=== PATIENT | male | born 1950 | race Caucasian/White ===

== ENCOUNTER → 2024-06-19 | Outpatient (CLI) | payer MEDICARE, MEDICAID, SELFPAY ==
[2024-06-19 10:25] LABS: Alanine Aminotransferase 10 U/L (10-49); Albumin, Serum 4.1 gm/dL (3.4-4.8); Albumin/Globulin Ratio 1.6 (1.2-2.2); Alkaline Phosphatase 72 U/L (46-116); Anion Gap 6 (7-16); Aspartate Amino Transferase 13 U/L (0-34); BUN/Creatinine Ratio 13 Ratio (12-20); Bilirubin,Total 0.8 mg/dL (0.3-1.2); Blood Urea Nitrogen 15 mg/dL (9-23); Calcium 9.8 mg/dL (8.3-10.6); Calcium (Corrected) 9.8 mg/dL (8.5-10.1); Carbon Dioxide 28.1 mMol/L (20.0-31.0); Chloride 108 mMol/L (98-107); Creatinine (Component) 1.2 mg/dL (0.6-1.3); Globulin 2.5 gm/dL (2.3-3.5); Glucose 97 mg/dL (74-106); Osmolality,Calculated 283 (275-295); Potassium 3.6 mMol/L (3.4-5.1); Sodium 142 mMol/L (136-145); Total Protein 6.6 gm/dL (5.7-8.2); eGFR > 60 See Note
== END | disposition home or self-care (01) ==
LOC: SCTO 09:18
PROVIDERS: PCP Family Medicine; Referring Provider Radiology Therapeutic Radiology; Visit Provider Radiology Therapeutic Radiology
DX: C61 Malignant neoplasm of prostate (principal)
CPT/HCPCS: 36415; 80053

== ENCOUNTER 2024-06-28 09:14 | Outpatient (RCR) | payer MEDICARE, MEDICAID, SELFPAY ==
--- NOTE | 2024-06-28 10:47 | CTCTXPLN_ITS ---
[facility] [place] [address] [place], [place] [address] Physician Clinical Treatment Planning Note Date of Service: 06/28/2024 Name: SOFY HINOJOSA : 1950 The patient has agreed to proceed with Radiation therapy. Tests and supporting medical records were interpreted to assist in defining the tumor location and extent of disease. Further imaging will be necessary to contour and delineate the volume to which the XRT will be provided. A. Treatment Intent: Palliative B. Modality: 6 MV C. Requested Technique: VMAT D. Treatment Site: C-spine E. Critical structures to be contoured on plan: F. In order to accomplish this plan, I am ordering/Prescribing the followin. Simulations (s) will be performed to accomplish a reproducible treatment position, to determine op timal treatment portals/beam arrangements, to design beam modifying devices and verify treatment port als on patient prior to the commencement of Radiation Therapy. C-spine 2. Devices; for immobilization and beam shapin. CT Guidance for placement of XRT ordonez Scan area: 4. Portal images Frequency: 5. Invivo transit dose measurement once per week on all VMAT patients. 6. Special Physics Consult Requested for: 7. Other requests: G. Dose Objectives: Palliative Electronically signed by: Zenon Pollack M.D. 06/28/2024 10:44 AM
--- NOTE | 2024-06-28 10:49 | CTCTXPLNST_ITS ---
Radiation Oncology Treatment Planning Sheet Name: SOFY HINOJOSA MR#: [id number] : 1950 Dx: C61 Malignant neoplasm of prostate Date of Service: 06/28/2024 Account #: ?? Pt Treatment Intent: curative palliative other: Stage: Procedure CPT # Ordered Spec. Procedure 15604 Cordova Complex (set-up) 08963 C spine (base of skull-T1) 1 Cordova Simple 08812 IMRT Plan 38252 1 MLC Devices VMAT 75935 3 Cordova 3 D 05597 TRTMT dev Complex 41421 aquaplast 1 TRTMT dev simple 99742 Basic Bg 17733 6 Special Dosimetry 47909 Spec Physics 22449 Port Films 44155 SRS Cranial/1FX 09793 SBR 5 FX or Less /ex: 5 = 5 fx 58074 IMRT Simple 49209 3000 10 IMRT Complex 86629 IGRT 57402 8 Rad del com 6-10 64378 Rad del com 06-26 52498 Cont Med Physics 12567 2 Treatment Planning 49885 1 Rad del com 20 mev 93398 Rad del inter 6 57050 Rad del inter 06-26 16195 Rad del simple 6 31623 Rad del simple 06-26 45505 Special Port Plan 61950 TRTMT dev inter 68366 Isodose Complex 52375 Isodose simple 96094 Resp Motion Mgmt Simulation 01200 Placement of Fiducial Markers 28694 Electronically Signed By: Zenon Pollack MD, DABR 06/28/2024 10:47 AM
== END 2024-07-07 23:59 | disposition home or self-care (01) ==
LOC: SCTC 09:14
PROVIDERS: PCP Family Medicine; Referring Provider Radiology Therapeutic Radiology; Visit Provider Radiology Therapeutic Radiology
DX: C61 Malignant neoplasm of prostate (principal)
CPT/HCPCS: 78306; 99213; A9503; G0463

== ENCOUNTER → 2024-06-28 | Outpatient (CLI) | payer MEDICARE, MEDICAID, SELFPAY ==
--- NOTE | 2024-06-28 13:00 | XR_ITS ---
Examination: Bone scan whole body, radioisotope Date and time of exam: June 28, 2024 1301 hours Comparison 05/06/2023 INDICATIONS: Diagnosis malignant neoplasm prostate status post prostatectomy September 2023 with elevated PSA Technique: Study has been performed with intravenous administration of 85.4 mci 99M technetium MDP. Anterior, posterior whole body images are obtained. Images have been obtained including the lower extremities. Findings: Increased isotope accumulation right shoulder Increased isotope accumulation over the first digits Mildly increased isotope accumulation mid dorsal spine IMPRESSION: Positive bone scan but nonspecific, recommend repeat plain films right shoulder as well as plain films thoracic spine follow-up
== END | disposition home or self-care (01) ==
PROVIDERS: PCP Family Medicine; Referring Provider Radiology Therapeutic Radiology; Visit Provider Radiology Therapeutic Radiology
DX: R93.7 Abnormal findings on diagnostic imaging of other parts of musculoskeletal system (principal); C61 Malignant neoplasm of prostate
CPT/HCPCS: 78306; A9503

== ENCOUNTER 2024-07-31 10:51 | Outpatient (RCR) | payer MEDICARE, MEDICAID, SELFPAY ==
--- NOTE | 2024-07-12 15:16 | CTCSNOTE_ITS ---
[facility] [address] [place], [place] [address] CT Simulation Note Date: 07/09/2024 MR# [id number] Name: SOFY HINOJOSA : 1950 (A) DIAGNOSIS: C61 Malignant neoplasm of prostate (B) Patient was placed in supine position and used aqupalst for immobilization purposes. (C) CT slices included c spine (D) VMAT Will be needed for maximum sparing of adjacent normal critical structures. (E) Patient tolerated the simulation well and left the room in good condition. Electronically signed by: Zenon Pollack MD, DUDLEY 07/12/2024 3:13 PM
== END 2024-08-07 23:59 | disposition home or self-care (01) ==
LOC: SCTC 10:51
PROVIDERS: PCP Family Medicine; Referring Provider Radiology Therapeutic Radiology; Visit Provider Nurse Practitioner Family
DX: Z51.0 Encounter for antineoplastic radiation therapy (principal); Z51.11 Encounter for antineoplastic chemotherapy; C61 Malignant neoplasm of prostate; C79.51 Secondary malignant neoplasm of bone; Z90.79 Acquired absence of other genital organ(s)
CPT/HCPCS: 36415; 77014; 77290; 77300; 77301; 77334; 77336; 77338; 77385; 80053; 84153; 85025; 96402; 99212; J9217; G0463

== ENCOUNTER 2024-08-04 10:15 | Emergency (ER) | payer MEDICARE, MEDICAID, SELFPAY ==
[2024-08-04 10:16] VITALS: BMI 35.5
[2024-08-04 11:17] VITALS: BP 149/79; PULSE 96; RESP 18; TEMP 37.2; O2SAT 95; BMI 36.3
--- NOTE | 2024-08-04 11:55 | PD.EDRME ---
Rapid Medical Screening Exam RME Arrival date/time: 08/04/24 10:15 74-year-old male past medical history of cancer to neck presents emergency department complaining of inability to swallow or eat for the last 4 days after receiving radiation therapy. Chief Complaint: Dental/Oral/Throat Time Seen by Provider: 08/04/24 11:22 Vital signs: Vital Signs Temperature 98.9 F 08/04/24 11:17 Pulse Rate 96 08/04/24 11:17 Respiratory Rate 18 08/04/24 11:17 Blood Pressure 149/79 H 08/04/24 11:17 Pulse Oximetry (%) 95 08/04/24 11:17 Oxygen Delivery Method Room Air 08/04/24 11:17 Vital signs reviewed by provider: Yes
[2024-08-04 13:05] LABS: Basophils % (Auto) 0 % (0-2.5); Eosinophils # (Auto) 0.1 Thou/mm3 (0.0-0.5); Eosinophils % (Auto) 2 % (0-10); Hematocrit 40.6 % (41.0-53.0); Hemoglobin 14.1 g/dL (13.5-16.0); Immature Granulocytes % (Auto) 0 % (0-0); Immature Granulocytes Auto 0.02 Thou/mm3 (0.00-0.00); Lymphocytes # (Auto) 0.7 Thou/mm3 (1.0-4.8); Lymphocytes % (Auto) 11 % (10-50); Mean Corpuscular HGB Conc 34.7 g/dl (31.0-37.0); Mean Corpuscular Hemoglobin 32.1 pg (25.0-35.0); Mean Corpuscular Volume 93 fL (80-100); Monocytes # (Auto) 0.6 Thou/mm3 (0.0-0.8); Monocytes % (Auto) 9 % (0-12); Neutrophils # (Auto) 4.9 Thou/mm3 (1.8-7.7); Neutrophils % (Auto) 78 % (37-80); Nucleated Red Blood Cell % 0 /100 WBC (0); Platelet Count 292 Thou/mm3 (140-440); RDW Standard Deviation 43.8 fL (35.1-43.9); Red Blood Count 4.39 Miln/mm3 (4.50-5.90); White Blood Count 6.3 Thou/mm3 (3.8-10.6)
[2024-08-04 13:34] LABS: Alanine Aminotransferase 11 U/L (10-49); Albumin, Serum 4.7 gm/dL (3.4-4.8); Albumin/Globulin Ratio 1.7 (1.2-2.2); Alkaline Phosphatase 60 U/L (46-116); Anion Gap 9 (7-16); Aspartate Amino Transferase 30 U/L (0-34); BUN/Creatinine Ratio 17 Ratio (12-20); Bilirubin,Total 0.8 mg/dL (0.3-1.2); Blood Urea Nitrogen 19 mg/dL (9-23); Calcium 10.1 mg/dL (8.3-10.6); Calcium (Corrected) 10.1 mg/dL (8.5-10.1); Carbon Dioxide 26.1 mMol/L (20.0-31.0); Chloride 105 mMol/L (98-107); Creatinine (Component) 1.1 mg/dL (0.6-1.3); Estimated Creatinine Clearance 61.8 mL/min (>60); Globulin 2.8 gm/dL (2.3-3.5); Glucose 90 mg/dL (74-106); Osmolality,Calculated 281 (275-295); Potassium 4.2 mMol/L (3.4-5.1); Sodium 140 mMol/L (136-145); Total Protein 7.5 gm/dL (5.7-8.2); eGFR > 60 See Note
[2024-08-04 14:14] VITALS: BP 123/81; PULSE 93; RESP 18; TEMP 36.8; O2SAT 98
[2024-08-04 14:37] LABS: Collection Type, Urine Clean Catch
[2024-08-04 14:52] LABS: Amorphous Crystals,Urine Present (Absent); Bilirubin,Urine Negative (Negative); Blood,Urine 1+ (Negative); Color,Urine Yellow (Lt Yel-Yel); Culture Indicated,Urine Not Indicated; Glucose, Urine Negative (Negative); Ketones,Urine 4+ (Negative); Leukocyte Esterase,Urine Negative (Negative); Nitrite,Urine Negative (Negative); Protein,Urine 1+ (Neg - Trace); RBC,Urine 6 /hpf (0-3); Specific Gravity,Urine 1.038 (1.001-1.035); Squamous Epithelial Cell,Urine < 1 /hpf (0-5); Urobilinogen,Urine Negative mg/dL (0.0-1.0); WBC,Urine 1 /hpf (0-5)
[2024-08-04 14:55] LABS: Clarity,Urine Hazy (Clear/Hazy)
[2024-08-04] MEDS: LIDOCAINE VISCOUS 2% 15 ML UDC PO (17:03)
[2024-08-04] MEDS: MG HYD/AL HYD/SIME (Maalox Reg) SUSP 30 ML UDC 10 ML PO (17:04)
[2024-08-04] MEDS: DiphenhydrAMINE ELIX 25 MG/10 ML UDC PO (17:06)
--- NOTE | 2024-08-04 17:39 | EDNOTE_ITS ---
ED General RME/HPI General Chief complaint: Dental/Oral/Throat Stated complaint: CAN'T EAT S/P RADIATION ON NECK 4 DAYS AGO Time Seen by Provider: 08/04/24 11:22 Arrival date/time: 08/04/24 10:15 RME / HPI RME / HPI narrative: 08/04/24 10:15 74-year-old male past medical history of cancer to neck presents emergency department complaining of inability to swallow or eat for the last 4 days after receiving radiation therapy. CARLOS MANUEL HPI: 74-year-old male with a history of metastatic cancer to his cervical spine (prostate primary) who presents with 2 weeks of progressive dysphagia where he has difficulty even swallowing water now for the past 4 days. He completed 10 days of radiation 10 rounds up until 4 days ago. He initially noted difficulty swallowing foods where it rapidly progressed to anything solid anything liquid by the end of his radiation. He no longer is scheduled for radiation at this point but comes to the emergency department has he has difficulty with swallowing. He describes as both a difficulty initiating the swallow mixed with a sense of it getting stuck. He describes a getting stuck very high above the level of his [place]aw[place] apple. Related Data Home Medications ?Medication ?Instructions ?Recorded ?Confirmed tamsulosin 0.4 mg capsule (Flomax) 0.4 mg PO QDAY 03/24/23 10/13/23 Allergies Allergy/AdvReac Type Severity Reaction Status Date / Time No Known Allergies Allergy Verified 08/04/24 10:17 ED Exam Narrative Physical exam: GENERAL APPEARANCE: AxOx4, generally well-appearing, no acute distress. HEENT: NC, AT. MMM. EOMI, clear conjunctiva, oropharynx clear, no masses, no erythema, no mucosal membrane breakdown NECK: Supple without lymphadenopathy. No masses, no asymmetry, no stiffness or restricted ROM. HEART: Normal rate and regular rhythm, normal S1/S1, no m/r/g LUNGS: CTAB, moving air well. No crackles or wheezes are heard. NEUROLOGICAL: Grossly nonfocal. Alert and oriented, moving all 4 extremities. CN not formally tested but appear grossly intact. Observed to ambulate with normal gait. Course Course Course Narrative: After Magic mouthwash/GI cocktail patient was able to tolerate p.o. fluids well with minimal discomfort Quality Measures none Orders Category Date Time Status CBC Stat Lab 08/04/24 12:41 Completed CMP [Comprehensive Metabolic Panel] Stat Lab 08/04/24 12:41 Completed Urinalysis, C/S if Indicated Stat Lab 08/04/24 11:45 Completed DiphenhydrAMINE [Benadryl] Med 08/04/24 16:46 Discontinued 25 mg PO X1 ONE Lidocaine 2% Viscous [Xylocaine 2% Viscous] Med 08/04/24 16:46 Discontinued 15 ml PO X1 ONE mg Hyd/Al Hyd/Tomy Susp [Maalox Susp] Med 08/04/24 16:46 Discontinued 10 ml PO X1 ONE Vital Signs Vital signs: Vital Signs Temperature 98.9 F 08/04/24 11:17 Pulse Rate 96 08/04/24 11:17 Respiratory Rate 18 08/04/24 11:17 Blood Pressure 149/79 H 08/04/24 11:17 Pulse Oximetry (%) 95 08/04/24 11:17 Oxygen Delivery Method Room Air 08/04/24 11:17 [facility] Patient data External records reviewed:: [facility] previous records Clinical information provided by:: patient Social determinants that could affect healthcare access:: none Patient has the following chronic illnesses:: Metastatic prostate cancer How is presenting disease/condition affected by chronic disease/condition?: e xacerbated by Evaluation data The following diagnostics were reviewed and interpreted by me:: lab results and other (specify) Lab and/or radiology exams considered but not ordered:: As per narrative Interpretation Summary: As per narrative Medications Medications considered but not ordered:: None Medication administrations:: Medication Administration History Discontinued Medications Al Hydrox/Mg Hydrox/Simethicone (Mg Hyd/Al Hyd/Tomy (Maalox Reg) Susp 30 Ml Udc) 10 ml PO X1 ONE Stop: 08/04/24 16:47 Last Admin: 08/04/24 17:04 Dose: 10 ml Documented By: EDUARDO Diphenhydramine HCl (Diphenhydramine Elix 25 Mg/10 Ml Udc) 25 mg PO X1 ONE Stop: 08/04/24 16:47 Last Admin: 08/04/24 17:06 Dose: 25 mg Documented By: EDUARDO Lidocaine HCl (Lidocaine Viscous 2% 15 Ml Udc) 15 ml PO X1 ONE Stop: 08/04/24 16:47 Last Admin: 08/04/24 17:03 Dose: 15 ml Documented By: EDUARDO Above Consultations Consultation(s) initiated? (list below): No Diagnosis Differential Diagnosis ED Complaint MDM: Esophagitis, metastatic mass effect, dysphagia, upper respiratory infection Most likely diagnosis given after review of the tests above:: See below Admission Indicated Admission indicated?: not indicated Explain why admission is indicated or not indicated:: As per narrative Admission Request Was there a request for admission?: No Disposition Plan Disposition Plan: Discharge Discharge Attestation Discharge Attestation: The patient and all family members were given an opportunity to ask questions and understood the discharge instructions. Discharge instructions specifically effects, indications for sooner follow up or return to the emergency department, and the expected course of current diagnosis. Patient condition: Stable Medical Decision Making MDM Narrative MDM Narrative: Mr. Gomez is a very pleasant gentleman who just completed a relatively aggressive round of directed radiation therapy to his neck who now presents with symptoms consistent with dysphagia. His pattern of tolerating solids to liquids does not appear to be due to a gradual mass effect. It seems to be random and likely secondary to localized irritation/inflammation. Therefore after discussion with the patient we decided to try some topical treatments and to assess for his swallowing. If this would work we would consider CT scan of the neck to look for any particular mass effect. After a concoction of Magic mouthwash/GI cocktail components, patient noted significant improvement was actually able to tolerate water and liquids very well. He does not want the CT scan in order likely needs 1 at this point. Laboratory testing was sent via the RME process which shows no acute findings or close does not really have a particular or directed association with the symptoms or dysphagia. As patient is otherwise well-appearing, stable vital signs, is not tolerating fluids. He is appropriate for outpatient follow-up with his radiation oncologist. Differential Diagnosis Differential Diagnosis: Esophagitis, metastatic mass effect, dysphagia, upper respiratory infection Lab Data 08/04/24 12:41 08/04/24 12:41 Labs: Lab Results 08/04/24 08/04/24 Range/Units 11:45 12:41 WBC 6.3 (3.8-10.6) Thou/mm3 RBC 4.39 L (4.50-5.90) Miln/mm3 Hgb 14.1 (13.5-16.0) g/dL Hct 40.6 L (41.0-53.0) % MCV 93 (80-100) fL MCH 32.1 (25.0-35.0) pg MCHC 34.7 (31.0-37.0) g/dl RDW Std Deviation 43.8 (35.1-43.9) fL Plt Count 292 D (140-440) Thou/mm3 Neut % (Auto) 78 (37-80) % Lymph % (Auto) 11 (10-50) % [place] % (Auto) 9 (0-12) % Eos % (Auto) 2 (0-10) % Baso % (Auto) 0 (0-2.5) % Neut # (Auto) 4.9 (1.8-7.7) Thou/mm3 Lymph # (Auto) 0.7 L (1.0-4.8) Thou/mm3 [place] # (Auto) 0.6 (0.0-0.8) Thou/mm3 Eos # (Auto) 0.1 (0.0-0.5) Thou/mm3 Baso # (Auto) 0.0 (0.0-0.2) Thou/mm3 Immature Gran # (Auto) 0.02 H (0.00-0.00) Thou/mm3 Absolute Nucleated RBC 0.00 (0.00-0.00) Thou/mm3 Immature Gran % 0 (0-0) % Nucleated RBC % 0 (0) /100 WBC Sodium 140 (136-145) mMol/L Potassium 4.2 (3.4-5.1) mMol/L Chloride 105 (98-107) mMol/L Carbon Dioxide 26.1 (20.0-31.0) mMol/L Anion Gap 9 (7-16) BUN 19 (9-23) mg/dL Creatinine 1.1 (0.6-1.3) mg/dL Estim Creat Clear Calc 61.8 (>60) mL/min eGFR > 60 (60 - ) See Note BUN/Creatinine Ratio 17 (12-20) Ratio Glucose 90 (74-106) mg/dL Calculated Osmolality 281 (275-295) Calcium 10.1 (8.3-10.6) mg/dL Corrected Calcium 10.1 (8.5-10.1) mg/dL Total Bilirubin 0.8 (0.3-1.2) mg/dL AST 30 (0-34) U/L ALT 11 (10-49) U/L Alkaline Phosphatase 60 (46-116) U/L Total Protein 7.5 (5.7-8.2) gm/dL Albumin 4.7 (3.4-4.8) gm/dL Globulin 2.8 (2.3-3.5) gm/dL Albumin/Globulin Ratio 1.7 (1.2-2.2) Ur Collection Type Clean Catch Urine Color Yellow (Lt Yel-Yel) Urine Clarity Hazy (Clear/Hazy) Urine pH 6.0 (5.0-7.0) Ur Specific [place] 1.038 H (1.001-1.035) Urine Protein 1+ A (Neg - Trace) Urine Glucose (UA) Negative (Negative) Urine Ketones 4+ A (Negative) Urine Blood 1+ A (Negative) Urine Nitrite Negative (Negative) Urine Bilirubin Negative (Negative) Urine Urobilinogen (Auto) Negative (0.0-1.0) mg/dL Ur Leukocyte Esterase Negative (Negative) Urine RBC 6 H (0-3) /hpf Urine WBC 1 (0-5) /hpf Ur Squamous Epith Cells < 1 (0-5) /hpf Amorphous Crystals Present A (Absent) Urine Bacteria None (None) Ur Culture Indicated? Not Indicated Discharge Plan Plan Patient Disposition: HOME (Self Care) Prescriptions/Referrals Prescriptions/Med Rec: No Action tamsulosin [Flomax] 0.4 mg capsule 0.4 mg PO QDAY Referrals: Shilo Greene MD [Primary Care Provider] - In 1 week Problem List Clinical Impression: Dysphagia Patient/Caregiver Discharge Instructions Education Materials: ED Soft Diet, ED Dysphagia (Adult) Additional Instructions: Please take [id number] Maalox, and liquid Benadryl (children's Benadryl), in combination to calm the irritation to your throat. The mixture would be 2 tablespoons of Maalox with 2 tablespoons of Benadryl swallowed into mouthfuls. Each mouthful allow it sometimes to swish around your mouth and followed by slowly swallowing. Repeat this for second round. You can do this up to 3 times a day to calm the inflammation and irritation to the back your throat. Follow- up with your radiation oncologist, Dr. Pollack, in 2 to 3 days for recheck. You can return to the emergency department sooner symptoms worsen or if he notes any new or concerning issues. Print Language: [place] Stand Alone Forms: Beata Award Info., Patient Portal Info Letter
== END 2024-08-04 17:45 | disposition home or self-care (01) ==
PROVIDERS: Emergency Provider Emergency Medicine; PCP Family Medicine; Referring Provider Emergency Medicine
DX: R13.10 Dysphagia, unspecified (principal); C61 Malignant neoplasm of prostate; C79.51 Secondary malignant neoplasm of bone; Z92.3 Personal history of irradiation
CPT/HCPCS: 36415; 80053; 81001; 85025; 99283; J3490; A9270

== ENCOUNTER 2024-08-14 14:29 | Outpatient (RCR) | payer MEDICARE, MEDICAID, SELFPAY ==
--- NOTE | 2024-08-14 15:10 | CTCTSUMM_ITS ---
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 (B) Aim of Treatment: Palliative (C) Concomitant Chemotherapy: No (D) Radiation Dates: Prior radiation therapy to the prostate region JanuaryFebruary 2024 (E) Additional radiation therapy for C-spine mets as follows between 07/16/2024 through 07/27/2024 Treatment Prescription c spine VMAT 6 MV PHOT 3,000 cGy 10 300 cGy Approved (F) All ordonez were treated using customized MLC Blocks (G) Finding at Discharge: Patient had esophagitis symptoms and went to ER several days ago but now re solved. (H) Discharge Instructions and F/U Appt was given: The patient was also advised to continue follow-up with Dr. Chamberlain and primary care physician: Electronically signed by: Zenon Pollack MD, JULISAR 08/14/2024 3:08 PM
== END 2024-09-07 23:59 | disposition home or self-care (01) ==
LOC: SCTC 14:29
PROVIDERS: PCP Family Medicine; Referring Provider Family Medicine; Visit Provider Radiology Therapeutic Radiology
DX: C61 Malignant neoplasm of prostate (principal); C79.51 Secondary malignant neoplasm of bone; Z92.3 Personal history of irradiation
CPT/HCPCS: 99212; G0463

== ENCOUNTER → 2024-11-14 | Outpatient (CLI) | payer MEDICARE, MEDICAID, SELFPAY ==
[2024-11-14 09:31] LABS: Basophils % (Auto) 1 % (0-2.5); Eosinophils # (Auto) 0.3 Thou/mm3 (0.0-0.5); Eosinophils % (Auto) 6 % (0-10); Hematocrit 39.4 % (41.0-53.0); Hemoglobin 13.9 g/dL (13.5-16.0); Immature Granulocytes % (Auto) 0 % (0-0); Immature Granulocytes Auto 0.02 Thou/mm3 (0.00-0.00); Lymphocytes # (Auto) 1.2 Thou/mm3 (1.0-4.8); Lymphocytes % (Auto) 25 % (10-50); Mean Corpuscular HGB Conc 35.3 g/dl (31.0-37.0); Mean Corpuscular Hemoglobin 32.5 pg (25.0-35.0); Mean Corpuscular Volume 92 fL (80-100); Monocytes # (Auto) 0.4 Thou/mm3 (0.0-0.8); Monocytes % (Auto) 9 % (0-12); Neutrophils # (Auto) 2.9 Thou/mm3 (1.8-7.7); Neutrophils % (Auto) 59 % (37-80); Nucleated Red Blood Cell % 0 /100 WBC (0); Platelet Count 267 Thou/mm3 (140-440); RDW Standard Deviation 44.6 fL (35.1-43.9); Red Blood Count 4.28 Miln/mm3 (4.50-5.90); White Blood Count 4.8 Thou/mm3 (3.8-10.6)
[2024-11-14 09:43] LABS: Alanine Aminotransferase 11 U/L (10-49); Albumin/Globulin Ratio 1.5 (1.2-2.2); Alkaline Phosphatase 71 U/L (46-116); Anion Gap 7 (7-16); Aspartate Amino Transferase 20 U/L (0-34); BUN/Creatinine Ratio 17 Ratio (12-20); Bilirubin,Total 0.6 mg/dL (0.3-1.2); Blood Urea Nitrogen 17 mg/dL (9-23); Calcium 9.8 mg/dL (8.3-10.6); Calcium (Corrected) 9.8 mg/dL (8.5-10.1); Carbon Dioxide 28.4 mMol/L (20.0-31.0); Chloride 109 mMol/L (98-107); Globulin 2.7 gm/dL (2.3-3.5); Glucose 101 mg/dL (74-106); Osmolality,Calculated 288 (275-295); Potassium 3.7 mMol/L (3.4-5.1); Prostate Specific Antigen < 0.10 ng/mL (0-4.00); Sodium 144 mMol/L (136-145); Total Protein 6.7 gm/dL (5.7-8.2); eGFR > 60 See Note
== END | disposition home or self-care (01) ==
PROVIDERS: PCP Family Medicine; Referring Provider Nurse Practitioner Family; Visit Provider Nurse Practitioner Family
DX: C61 Malignant neoplasm of prostate (principal); C79.51 Secondary malignant neoplasm of bone
CPT/HCPCS: 36415; 80053; 84153; 85025

== ENCOUNTER 2024-11-20 13:07 | Outpatient (RCR) | payer MEDICARE, MEDICAID, SELFPAY ==
--- NOTE | 2024-11-13 11:58 | CTCFLWUP_ITS ---
[facility] [address] [place], [place] [address] FOLLOW-UP NOTE Date: 11/13/2024 MR#: [id number] Name: SOFY HINOJOSA : 1950 Dx: C61 Malignant neoplasm of prostate Identification. Patient with prostate CA group 5 [place]'s 9 intensity of the prostate with PSA 122. Had PET/CT2-24 that suggested pelvic and retroperitoneal lymph nodes Underwent radical prostatectomy [facility] 10/06/2023 with final path revealing 81 to 90% 4.2 cm greatest dimensions group 5 [place] score 9 (4+5) with extensive prostate extension bilateral seminal vesicle bladder neck extraprostatic soft tissue surgical margins positive. 1 of 15 lymph nodes removed with met. [id number] Patient completed XRT 6840 cGy via VMAT completed in 07/27/2024. Patient receiving Zytiga prednisone along with Lupron every 3 months. Most recent PSA 07/20/2024 less than 0.10 Patient states that since he began Lupron shots he is feeling dizzy and tired. He will speak to India Reese who has been managing hormone manipulation with patient. Patient is not have any significant pelvic symptoms following his radiation Assessment.#1 pT3b pN1 CA of the prostate status post radical prostatectomy 10/06/2023 postop radiation completed 07/27/2024. #2. On Zytiga prednisone and Lupron injections being followed by India Reese [employer]/Dr. Chamberlain #3. Most recent PSA less than 0.10 07/20/2024. Repeat labs pending. #4. I will see him again in 6 months. Electronically signed by: Zenon Pollack M.D. 11/13/2024 11:55 AM
== END 2024-12-05 23:59 | disposition home or self-care (01) ==
LOC: SCTC 13:07
PROVIDERS: PCP Family Medicine; Referring Provider Family Medicine; Visit Provider Radiology Therapeutic Radiology
DX: Z51.11 Encounter for antineoplastic chemotherapy (principal); C61 Malignant neoplasm of prostate; Z90.79 Acquired absence of other genital organ(s); Z92.3 Personal history of irradiation; Z79.818 Long term (current) use of other agents affecting estrogen receptors and estrogen levels
CPT/HCPCS: 96402; 99212; J9217; G0463

== ENCOUNTER 2024-12-25 13:28 | Outpatient (RCR) | payer MEDICARE, MEDICAID, SELFPAY | END 2025-01-05 23:59 | disposition home or self-care (01) | LOC: SCTC 13:28 | PROVIDERS: PCP Family Medicine; Referring Provider Family Medicine; Visit Provider Nurse Practitioner Family | DX: Z53.8 Procedure and treatment not carried out for other reasons (principal); C61 Malignant neoplasm of prostate ==

== ENCOUNTER → 2025-02-12 | Outpatient (CLI) | payer MEDICARE, MEDICAID, SELFPAY ==
[2025-02-12 09:50] LABS: Basophils # (Auto) 0.0 Thou/mm3 (0.0-0.2); Basophils % (Auto) 0 % (0-2.5); Eosinophils # (Auto) 0.3 Thou/mm3 (0.0-0.5); Eosinophils % (Auto) 6 % (0-10); Hematocrit 37.9 % (41.0-53.0); Hemoglobin 13.7 g/dL (13.5-16.0); Immature Granulocytes Auto 0.01 Thou/mm3 (0.00-0.00); Lymphocytes # (Auto) 1.0 Thou/mm3 (1.0-4.8); Lymphocytes % (Auto) 21 % (10-50); Mean Corpuscular HGB Conc 36.1 g/dl (31.0-37.0); Mean Corpuscular Hemoglobin 32.2 pg (25.0-35.0); Mean Corpuscular Volume 89 fL (80-100); Monocytes # (Auto) 0.4 Thou/mm3 (0.0-0.8); Monocytes % (Auto) 9 % (0-12); Neutrophils # (Auto) 3.0 Thou/mm3 (1.8-7.7); Neutrophils % (Auto) 64 % (37-80); Nucleated Red Blood Cell # 0.00 Thou/mm3 (0.00-0.00); Nucleated Red Blood Cell % 0 /100 WBC (0); Platelet Count 264 Thou/mm3 (140-440); RDW Standard Deviation 42.5 fL (35.1-43.9); Red Blood Count 4.25 Miln/mm3 (4.50-5.90); White Blood Count 4.6 Thou/mm3 (3.8-10.6)
[2025-02-12 10:17] LABS: Alanine Aminotransferase 22 U/L (10-49); Albumin, Serum 4.0 gm/dL (3.4-4.8); Albumin/Globulin Ratio 1.5 (1.2-2.2); Alkaline Phosphatase 68 U/L (46-116); Anion Gap 10 (7-16); Aspartate Amino Transferase 32 U/L (0-34); BUN/Creatinine Ratio 8 Ratio (12-20); Bilirubin,Total 0.6 mg/dL (0.3-1.2); Blood Urea Nitrogen 9 mg/dL (9-23); Calcium 9.3 mg/dL (8.3-10.6); Calcium (Corrected) 9.3 mg/dL (8.5-10.1); Carbon Dioxide 27.0 mMol/L (20.0-31.0); Chloride 110 mMol/L (98-107); Creatinine (Component) 1.2 mg/dL (0.6-1.3); Globulin 2.7 gm/dL (2.3-3.5); Glucose 116 mg/dL (74-106); Osmolality,Calculated 292 (275-295); Potassium 3.7 mMol/L (3.4-5.1); Sodium 147 mMol/L (136-145); Total Protein 6.7 gm/dL (5.7-8.2); eGFR > 60 See Note
[2025-02-12 10:46] LABS: Prostate Specific Antigen < 0.10 ng/mL (0-4.00)
== END | disposition home or self-care (01) ==
LOC: SCTO 08:56
PROVIDERS: Referring Provider Nurse Practitioner Family; Visit Provider Nurse Practitioner Family
DX: C61 Malignant neoplasm of prostate (principal); C79.51 Secondary malignant neoplasm of bone
CPT/HCPCS: 36415; 80053; 84153; 85025

== ENCOUNTER 2025-02-19 13:13 | Outpatient (RCR) | payer MEDICARE, MEDICAID, SELFPAY | END 2025-03-07 23:59 | disposition home or self-care (01) | LOC: SCTC 13:13 | PROVIDERS: Referring Provider Nurse Practitioner Family; Visit Provider Nurse Practitioner Family | DX: Z51.11 Encounter for antineoplastic chemotherapy (principal); C61 Malignant neoplasm of prostate; Z90.79 Acquired absence of other genital organ(s); Z92.3 Personal history of irradiation | CPT/HCPCS: 96402; 99212; J9217; G0463 ==

== ENCOUNTER → 2025-05-20 | Outpatient (CLI) | payer MEDICARE, MEDICAID, SELFPAY ==
[2025-05-20 12:09] LABS: Basophils # (Auto) 0.0 Thou/mm3 (0.0-0.2); Basophils % (Auto) 0 % (0-2.5); Eosinophils # (Auto) 0.3 Thou/mm3 (0.0-0.5); Eosinophils % (Auto) 5 % (0-10); Hematocrit 40.9 % (41.0-53.0); Hemoglobin 14.0 g/dL (13.5-16.0); Immature Granulocytes Auto 0.01 Thou/mm3 (0.00-0.00); Lymphocytes # (Auto) 1.2 Thou/mm3 (1.0-4.8); Lymphocytes % (Auto) 22 % (10-50); Mean Corpuscular HGB Conc 34.2 g/dl (31.0-37.0); Mean Corpuscular Hemoglobin 31.3 pg (25.0-35.0); Mean Corpuscular Volume 91 fL (80-100); Monocytes # (Auto) 0.5 Thou/mm3 (0.0-0.8); Monocytes % (Auto) 9 % (0-12); Neutrophils # (Auto) 3.3 Thou/mm3 (1.8-7.7); Neutrophils % (Auto) 63 % (37-80); Nucleated Red Blood Cell # 0.00 Thou/mm3 (0.00-0.00); Nucleated Red Blood Cell % 0 /100 WBC (0); Platelet Count 321 Thou/mm3 (140-440); RDW Standard Deviation 45.1 fL (35.1-43.9); Red Blood Count 4.48 Miln/mm3 (4.50-5.90); White Blood Count 5.3 Thou/mm3 (3.8-10.6)
[2025-05-20 12:20] LABS: Prostate Specific Antigen < 0.10 ng/mL (0-4.00)
[2025-05-20 12:23] LABS: Alanine Aminotransferase 17 U/L (10-49); Albumin, Serum 4.3 gm/dL (3.4-4.8); Albumin/Globulin Ratio 1.6 (1.2-2.2); Alkaline Phosphatase 76 U/L (46-116); Anion Gap 10 (7-16); Aspartate Amino Transferase 27 U/L (0-34); BUN/Creatinine Ratio 8 Ratio (12-20); Bilirubin,Total 0.6 mg/dL (0.3-1.2); Blood Urea Nitrogen 10 mg/dL (9-23); Calcium 9.6 mg/dL (8.3-10.6); Calcium (Corrected) 9.6 mg/dL (8.5-10.1); Carbon Dioxide 26.8 mMol/L (20.0-31.0); Chloride 107 mMol/L (98-107); Creatinine (Component) 1.2 mg/dL (0.6-1.3); Globulin 2.7 gm/dL (2.3-3.5); Glucose 104 mg/dL (74-106); Osmolality,Calculated 285 (275-295); Potassium 4.1 mMol/L (3.4-5.1); Sodium 144 mMol/L (136-145); Total Protein 7.0 gm/dL (5.7-8.2); eGFR > 60 See Note
== END | disposition home or self-care (01) ==
PROVIDERS: PCP Family Medicine; Referring Provider Nurse Practitioner Family; Visit Provider Nurse Practitioner Family
DX: C61 Malignant neoplasm of prostate (principal); C79.51 Secondary malignant neoplasm of bone
CPT/HCPCS: 36415; 80053; 84153; 85025

== ENCOUNTER 2025-05-28 09:01 | Outpatient (RCR) | payer MEDICARE, MEDICAID, SELFPAY | END 2025-06-07 23:59 | disposition home or self-care (01) | LOC: SCTC 09:01 | PROVIDERS: Referring Provider Nurse Practitioner Family; Visit Provider Nurse Practitioner Family | DX: Z51.11 Encounter for antineoplastic chemotherapy (principal); C61 Malignant neoplasm of prostate; Z90.79 Acquired absence of other genital organ(s); Z92.3 Personal history of irradiation | CPT/HCPCS: 96402; 99213; J9217; G0463 ==